=== PATIENT | female | born 1960 | race Caucasian/White ===

== ENCOUNTER 2024-10-22 09:05 | Day surgery (SDC) | payer MEDICARE ==
[~2024-10-22 09:05] MED LIST: Sodium Chloride 0.9% 10 ML Syringe FLUSH PRN
[2024-10-22] MEDS: Sodium Chloride 0.9% 250 ML IV SCH (09:25)
[2024-10-22] MEDS ORDERED: Ondansetron 4 MG/2 ML SDV ONE (09:40)
[2024-10-22] MEDS ORDERED: Midazolam 1 MG/ML 2 ML SDV ONE ×2 (09:40)
[2024-10-22] MEDS ORDERED: fentaNYL 50 MCG/ML SDV ONE ×2 (09:40)
[2024-10-22] MEDS ORDERED: Propofol 200 MG/20 ML SDV ONE ×2 (09:40)
[2024-10-22] MEDS: Lidocaine 2% with EPINEPHrine 1:100,000 20 ML MDV ONE (09:53)
[2024-10-22] MEDS: Povidone-Iodine 5% Sterile Ophth Soln 30 ML Bottle EYERT ONE (09:53)
[2024-10-22] MEDS: Tetracaine HCl/PF 0.5% 4 ML Bottle EYERT ONE (09:53)
[2024-10-22] MEDS: Lidocaine 2% with EPINEPHrine 1:100,000 20 ML MDV INJECT SCH (09:53)
[2024-10-22] MEDS ORDERED: Bacitracin Oint 1 GM U/D Packet TOP SCH (10:45)
[2024-10-22 12:12] VITALS: BP 176/84; PULSE 60
== END 2024-10-22 12:07 | disposition home or self-care (01) ==
LOC: CC.SDS 09:05
PROVIDERS: ATTEND Ophthalmology
DX: H02.834 Dermatochalasis of left upper eyelid (principal); H02.831 Dermatochalasis of right upper eyelid; I12.9 Hypertensive chronic kidney disease with stage 1 through stage 4 chronic kidney disease, or unspecified chronic kidney disease; N18.30 Chronic kidney disease, stage 3 unspecified; E78.00 Pure hypercholesterolemia, unspecified; Z79.899 Other long term (current) drug therapy; Z88.0 Allergy status to penicillin; Z88.2 Allergy status to sulfonamides; Z91.018 Allergy to other foods
CPT/HCPCS: 00103; J2250; J2405; J2704; J3010; J3490; J7120